=== PATIENT | female | born 1995 | race Caucasian/White ===

== ENCOUNTER 2017-12-19 19:51 | Emergency (ER) | payer BC ==
[~2017-12-19] VITALS: Ht 167.6 cm; Wt 60.2 kg
[2017-12-19 19:53] VITALS: Ht 167.6 cm; Wt 60.2 kg
--- NOTE | 2017-12-19 20:42 | EMERGENCY ROOM VISIT NOTE ---
History Report prepared by Leeanna: Deandre Dewey Under the Supervision of: Dr. Boni Graham M.D. First contact with patient: 19:59 Chief Complaint: COUGH Stated Complaint: CHEST PAIN History of Present Illness The patient is a 22 year old female who presents to the Emergency Room with complaints of an intermittent burning throat and chest caused by a cough. The cough is sometimes productive and she ranks the pain a 7/10. She states that the cough has been on and off but the burning started yesterday, December 18. She denies a fever, leg swelling and asthma, but does state the mucous is a yellowish color. The patient explains that she returned from [place] 8 months ago. She also reports that she is on control. Source of History: patient Onset: yesterday Position: throat Quality: burning Timing: intermittent Modifying Factors (Worsening): other (coughing) Associated Symptoms: + sorethroat, + cough Review of Systems See HPI for pertinent positives & negatives. A total of 10 systems reviewed and were otherwise negative. Past Medical & Surgical Surgical Problems: (1) History of tonsillectomy Family History FH: myocardial infarction Social History Smoking Status: Never Smoker Occupation Status: [employer] student Current/Historical Medications Scheduled Control Pills ( Control Pills), 1 TAB PO DAILY Doxycycline Hyclate (Vibramycin), 100 MG PO BID Scheduled PRN Fexofenadine-Pseudoephedrine (Trish-D 24 Hour Allergy), 1 TAB PO DAILY PRN for Allergy Symptoms Allergies Coded Allergies: No Known Allergies (Unverified , 12/19/17) Physical Exam Vital Signs Date Time Temp Pulse Resp B/P (MAP) Pulse Ox O2 Delivery O2 Flow Rate FiO2 12/19/17 21:33 36.7 96 18 136/81 100 12/19/17 21:27 96 18 136/81 100 Room Air 12/19/17 20:46 Room Air 12/19/17 19:53 36.7 100 20 158/110 99 Room Air Physical Exam GENERAL: Patient is in no acute distress. Somewhat tearful and anxious. HEENT: No acute trauma, normocephalic atraumatic, mucous membranes moist, no nasal congestion, no scleral icterus. NECK: No stridor, no adenopathy, no meningismus, trachea is midline. LUNGS: Clear to auscultation bilaterally, no wheeze, no rhonchi, breath sounds equal. HEART: Without murmurs gallops or rubs, regular rate and rhythm. CHEST: Non-tender chest wall ABDOMEN: Soft, nontender, bowel sounds positive, no hernias, no peritonitis. EXTREMITIES: No cyanosis or edema, full range of motion of all the joints without pain or difficulty, no signs for acute trauma. NEUROLOGIC: Oriented x 3, no acute motor or sensory deficits, no focal weakness. SKIN: No rash, no jaundice, no diaphoresis. Medical Decision & Procedures Laboratory Results Test 12/19/17 20:23 Bedside D-Dimer 226 ng/mlFEU (0-450) Laboratory results reviewed by me. Medications Administered Medications (Trade) Dose Ordered Sig/Zeenat Route Start Time Stop Time Status Last Admin Dose Admin Albuterol (Ventolin Hfa Inhaler) 2 puffs NOW ONCE INH 12/19/17 20:45 12/19/17 20:46 DC 12/19/17 20:56 2 PUFFS Doxycycline Hyclate (Vibramycin Cap) 100 mg ONE ONCE PO 12/19/17 20:45 12/19/17 20:46 DC 12/19/17 20:55 100 MG ECG Per My Interpretation Indication: other (Coughing and questionnable EKG from [facility]) Rate (beats per minute): 88 Rhythm: normal sinus Findings: other (No ST elevation, No PVC) ED Course 2002: The patient was evaluated in room C9. A complete history and physical exam was performed. Medical Decision Differential Diagnosis Bronchitis, pulmonary embolism, pneumonia, pneumothorax, musculoskeletal pain, pericarditis, myocardial infarction. Patient presents with some burning chest pain with coughing. The cough has been persistent for months. Her lungs are clear on exam, her heart does not sound abnormal on auscultation. Her EKG shows a normal sinus rhythm, no acute ischemia. Chest film done earlier today did by report was negative. I did do a [id number] d-dimer, this was negative. The patient likely has bronchitis with chest pain from the coughing itself. The patient has been reassured. She is being discharged on albuterol and doxycycline. Doses of each medication were given here prior to discharge. If worsening, she can return. Medication Reconcilliation Current Medication List: was personally reviewed by me Blood Pressure Screening Patient's blood pressure: Elevated blood pressure Blood pressure disposition: Elevated BP felt to be situational Impression Primary Impression: Cough Additional Impression: Left sided chest pain Scribe Attestation The scribe's documentation has been prepared under my direction and personally reviewed by me in its entirety. I confirm that the note above accurately reflects all work, treatment, procedures, and medical decision making performed by me. Departure Information Dispostion Home / Self-Care Prescriptions Doxycycline Hyclate (VIBRAMYCIN) 100 Mg Cap 100 MG PO BID for 7 Days, #14 CAP Prov: Boni Graham M.D. 12/19/17 Referrals No Doctor, Assigned (PCP) Forms HOME CARE DOCUMENTATION FORM, IMPORTANT VISIT INFORMATION Patient Instructions My [facility] Problem Qualifiers
[2017-12-19] MEDS ORDERED: ALBUTEROL HFA 8 GM INHALER INH ONE (20:45)
[2017-12-19] MEDS ORDERED: DOXYCYCLINE HYCLATE 100 MG CAP PO ONE (20:45)
[2017-12-19] MEDS ORDERED: BCPILLS PO (21:06)
[2017-12-19] MEDS ORDERED: FEXO1TAB58 PO (21:06)
[2017-12-19] MEDS ORDERED: DOXY100C PO (21:14)
[2017-12-19 21:33] VITALS: BP 136/81; PULSE 96; TEMP 36.7; O2SAT 100
== END 2017-12-19 21:30 | disposition home or self-care (01) ==
LOC: C.EDB 19:53 → C.EDC 21:30
DX: R05 Cough (principal); R07.9 Chest pain, unspecified; Z79.3 Long term (current) use of hormonal contraceptives